=== PATIENT | male | born 1940 | race Caucasian/White ===

== ENCOUNTER → 2017-05-17 | Outpatient (CLI) | payer MEDICARE, OTHER ==
[~2017-05-17] MED LIST: ACET-1600 PO; ACET325T14 PO; ASPI-496 PO; ATOR10TA PO; BIOT5TAB PO; CALC625T68 PO; CITRACAL PO; DIAZ5TAB PO; GLUC-111 PO; NIAC100035 PO; OMEG1CAP24 PO; OMEP40CA6 PO; TRAM50TA2 PO; UBID50TA3 PO
[2017-05-17 15:31] LABS: BLOOD UREA NITROGEN 14 mg/dL (7-18)
== END | disposition home or self-care (01) ==
LOC: STAR 14:19
PROVIDERS: ATTEND Neurological Surgery
DX: Z01.818 Encounter for other preprocedural examination (principal); R94.31 Abnormal electrocardiogram [ECG] [EKG]; M48.06 Spinal stenosis, lumbar region; R79.1 Abnormal coagulation profile
CPT/HCPCS: 36415; 71020; 80048; 85025; 85610; 85730; 93005

== ENCOUNTER 2017-06-02 06:34 | Inpatient (IN) | payer MEDICARE, OTHER ==
[~2017-06-02] VITALS: Ht 180.3 cm; Wt 100.7 kg
[2017-06-02] MEDS ORDERED: BACITRACIN 50,000 UNIT ONE (07:00)
[2017-06-02] MEDS ORDERED: BUPIVACAINE/PF-EPI 0.5% 1:200K ONE (07:00)
[2017-06-02] MEDS ORDERED: LACTATED RINGERS 1,000 ML IV SCH (07:12)
[2017-06-02] MEDS ORDERED: LIDOCAINE 1%, 2ML SQ PRN (07:30)
[2017-06-02] MEDS ORDERED: REMIFENTANIL 2 MG ONE (07:38)
[2017-06-02] MEDS ORDERED: THROMBIN 20,000 UNIT VIAL TP ONE (07:49)
[2017-06-02] MEDS ORDERED: FENTANYL PF 250 MCG/5ML ONE (08:41)
[2017-06-02] MEDS ORDERED: ONDANSETRON 2MG/ML, 2ML ONE (09:49)
[2017-06-02] MEDS ORDERED: PROPOFOL 10 MG/ML, 50ML ONE (09:49)
[2017-06-02] MEDS ORDERED: SUCCINYLCHOLINE 20 MG/ML, 10ML ONE (09:49)
[2017-06-02] MEDS ORDERED: CEFAZOLIN 1,000 MG ONE (09:49)
[2017-06-02] MEDS ORDERED: PROPOFOL 10 MG/ML, 20ML ONE (09:49)
[2017-06-02] MEDS ORDERED: DEXAMETHASONE 4 MG/ML, 1ML ONE (09:49)
[2017-06-02] MEDS ORDERED: KETAMINE 10 MG/ML, 20ML ONE (09:49)
[2017-06-02] MEDS ORDERED: BUPIVACAINE/PF-EPI 0.5% 1:200K INFIL ONE (10:27)
[2017-06-02] MEDS ORDERED: ONDANSETRON 2MG/ML, 2ML IVPush PRN (10:30)
[2017-06-02] MEDS ORDERED: hydrALAzine 20 MG/ML, 1ML IV PRN (10:30)
[2017-06-02] MEDS ORDERED: HYDROcodone/APAP 7.5-325MG/15ML UDC PO PRN (10:30)
[2017-06-02] MEDS ORDERED: EPHEDRINE 50 MG/ML, 1ML IVPush PRN (10:30)
[2017-06-02] MEDS ORDERED: LABETALOL 5MG/ML, 20ML IV PRN (10:30)
[2017-06-02] MEDS ORDERED: OXYcodone 5 MG/5 ML ORAL.SOL UDC PO PRN (10:30)
[2017-06-02] MEDS ORDERED: PROMETHAZINE 25 MG/ML, 1ML IV PRN (10:30)
[2017-06-02] MEDS ORDERED: ACETAMINOPHEN 325 MG TABLET PO PRN ×2 (10:30→14:00)
[2017-06-02] MEDS ORDERED: HYDROmorphone 1 MG/ML, 1ML ONE (12:16)
[2017-06-02] MEDS ORDERED: FENTANYL PF 100 MCG/2ML ONE (12:16)
[2017-06-02] MEDS ORDERED: ACETAMINOPHEN 650 MG/20.3 ML UDC ONE (12:16)
[2017-06-02] MEDS ORDERED: OXYcodone 5 MG/5 ML ORAL.SOL UDC ONE (12:16)
[2017-06-02] MEDS: HYDROmorphone 1 MG/ML, 1ML IV PRN ×2 (12:21→12:26)
[2017-06-02] MEDS: FENTANYL PF 100 MCG/2ML IV PRN ×2 (12:31→12:38)
[2017-06-02] MEDS ORDERED: MAGNESIUM HYDROXIDE 8%, 30ML UDC PO PRN (14:00)
[2017-06-02] MEDS ORDERED: morphine SULFATE 10 MG/ML, 1ML IV PRN (14:00)
[2017-06-02] MEDS ORDERED: HYDROcodone/APAP 5/325 TABLET PO PRN (14:00)
[2017-06-02] MEDS ORDERED: HYDROcodone/APAP 10/325 MG TABLET PO PRN (14:00)
[2017-06-02] MEDS ORDERED: PROMETHAZINE 25 MG/ML, 1ML IM PRN (14:00)
[2017-06-02] MEDS: NS + 20MEQ KCL 1,000 ML IV SCH (14:00)
[2017-06-02] MEDS ORDERED: DIPHENHYDRAMINE 50 MG/ML, 1ML IVPush PRN (14:00)
[2017-06-02] MEDS ORDERED: ONDANSETRON 2MG/ML, 2ML IV PRN (14:00)
[2017-06-02] MEDS ORDERED: ACETAMINOPHEN 650 MG SUPP PR PRN (14:00)
[2017-06-02] MEDS ORDERED: BISACODYL 10 MG SUPP PR PRN (14:00)
[2017-06-02] MEDS ORDERED: DIPHENHYDRAMINE 50 MG CAPSULE PO PRN (14:00)
[2017-06-02] MEDS ORDERED: DIPHENHYDRAMINE 50 MG/ML, 1ML IM PRN (14:00)
[2017-06-02] MEDS: TAMSULOSIN 0.4 MG CAP.ER.24H PO SCH (17:30)
[2017-06-02] MEDS: CEFAZOLIN PMX 2GM/50ML 50 ML IVPB SCH (18:13)
[2017-06-02] MEDS: OXYcodone/APAP 5/325MG TABLET PO PRN ×2 (18:19→22:33)
[2017-06-02 19:08] VITALS: BP 124/83
[2017-06-02] MEDS: ATORVASTATIN 10 MG TABLET PO SCH (20:49)
[2017-06-02] MEDS ORDERED: ZOLPIDEM 5MG TABLET PO PRN (21:00)
[2017-06-02] MEDS: CYCLOBENZAPRINE 10 MG TABLET PO PRN (22:33)
[2017-06-03 00:16] VITALS: BP 113/56
[2017-06-03] MEDS: CEFAZOLIN PMX 2GM/50ML 50 ML IVPB SCH ×2 (02:36→10:11)
[2017-06-03] MEDS: OXYcodone/APAP 5/325MG TABLET PO PRN ×5 (02:36→21:07)
[2017-06-03] MEDS: NS + 20MEQ KCL 1,000 ML IV SCH ×2 (02:36→14:06)
[2017-06-03 03:13] VITALS: BP 132/67
[2017-06-03] MEDS: OMEPRAZOLE 20 MG CAPSULE.DR PO SCH (06:43)
[2017-06-03] MEDS: CYCLOBENZAPRINE 10 MG TABLET PO PRN (06:43)
[2017-06-03 07:12] VITALS: BP 123/73
[2017-06-03] MEDS: SENNA/DOCUSATE TABLET PO SCH (08:42)
[2017-06-03] MEDS: TAMSULOSIN 0.4 MG CAP.ER.24H PO SCH (08:48)
[2017-06-03] MEDS ORDERED: SENNA/DOCUSATE TABLET PO SCH (09:00)
[2017-06-03] MEDS ORDERED: NIACIN 500 MG TABLET.ER PO SCH (09:00)
[2017-06-03 14:47] VITALS: BP 139/68
[2017-06-03 19:44] VITALS: BP 117/65
[2017-06-03] MEDS: NIACIN 500 MG TABLET.ER PO SCH (21:01)
[2017-06-03] MEDS: ATORVASTATIN 10 MG TABLET PO SCH (21:01)
[2017-06-04] MEDS: OXYcodone/APAP 5/325MG TABLET PO PRN ×6 (00:45→23:15)
[2017-06-04] MEDS: NS + 20MEQ KCL 1,000 ML IV SCH ×2 (02:09→11:21)
[2017-06-04 02:18] VITALS: BP 112/79
[2017-06-04 06:56] VITALS: BP 116/67
[2017-06-04] MEDS: TAMSULOSIN 0.4 MG CAP.ER.24H PO SCH (10:20)
[2017-06-04] MEDS: NIACIN 500 MG TABLET.ER PO SCH ×2 (10:20→20:34)
[2017-06-04] MEDS: SENNA/DOCUSATE TABLET PO SCH (10:21)
[2017-06-04] MEDS: OMEPRAZOLE 20 MG CAPSULE.DR PO SCH (10:21)
[2017-06-04 13:37] VITALS: BP 133/70
[2017-06-04 18:57] VITALS: BP 126/76
[2017-06-04 19:04] VITALS: BP 137/66
[2017-06-04] MEDS: ATORVASTATIN 10 MG TABLET PO SCH (20:34)
[2017-06-05 01:05] VITALS: BP 134/66
[2017-06-05] MEDS: NS + 20MEQ KCL 1,000 ML IV SCH (02:15)
[2017-06-05] MEDS: OXYcodone/APAP 5/325MG TABLET PO PRN ×2 (04:23→09:41)
[2017-06-05 06:53] VITALS: BP 128/73
[2017-06-05] MEDS: NIACIN 500 MG TABLET.ER PO SCH (09:39)
[2017-06-05] MEDS: OMEPRAZOLE 20 MG CAPSULE.DR PO SCH (09:39)
[2017-06-05] MEDS: TAMSULOSIN 0.4 MG CAP.ER.24H PO SCH (09:40)
[2017-06-05] MEDS: SENNA/DOCUSATE TABLET PO SCH (09:40)
[2017-06-05] MEDS ORDERED: OXYC-229 PO (12:28)
[2017-06-05] MEDS ORDERED: CYCL-259 PO (12:28)
[2017-06-05 12:44] VITALS: BP 161/90
[2017-06-05 13:19] VITALS: BP 142/81
== END 2017-06-05 13:25 | disposition home or self-care (01) | DRG 517 ==
LOC: OUT 06:34 → 4NOR 13:18 → OUT 16:14
PROVIDERS: ADMIT Neurological Surgery; ATTEND Neurological Surgery
PROC: 01NB0ZZ Release Lumbar Nerve, Open Approach (ICD-10-PCS; principal; 2017-06-02 09:00)
DX: M48.06 Spinal stenosis, lumbar region (principal); R33.8 Other retention of urine; E78.5 Hyperlipidemia, unspecified; K21.9 Gastro-esophageal reflux disease without esophagitis; I44.7 Left bundle-branch block, unspecified; M19.90 Unspecified osteoarthritis, unspecified site; F17.210 Nicotine dependence, cigarettes, uncomplicated; Z87.11 Personal history of peptic ulcer disease; M54.16 Radiculopathy, lumbar region
CPT/HCPCS: 72100; J0690; J1100; J1170; J2405; J2704; J3010; J3480; J0330

== ENCOUNTER → 2017-06-09 | Outpatient (CLI) | payer MEDICARE, OTHER ==
[~2017-06-09] MED LIST changes: +CYCL-259 PO; +OXYC-229 PO
[2017-06-09 10:19] LABS: BLOOD UREA NITROGEN 21 mg/dL (7-18)
[2017-06-09 10:23] LABS: IS PT STATUS REG ER OR PRE ER? NO
[2017-06-09 10:59] LABS: DIFF TOTAL CELLS COUNTED 100 CELL DIFF
[2017-06-09 11:02] LABS: VERIFY COUNTS? YES
== END | disposition home or self-care (01) ==
LOC: RAD 09:08
PROVIDERS: ATTEND Neurological Surgery
DX: R07.9 Chest pain, unspecified (principal); Z98.890 Other specified postprocedural states
CPT/HCPCS: 36415; 71020; 80048; 84484; 85025; 85379; 93005

== ENCOUNTER 2017-06-12 15:38 | Emergency (ER) | payer MEDICARE, OTHER ==
[~2017-06-12] VITALS: Ht 180.3 cm; Wt 89.2 kg
[2017-06-12] MEDS ORDERED: TIZA4CAP PO (16:20)
[2017-06-12] MEDS ORDERED: METHYLNALTREXONE 12 MG/0.6 ML SQ ONE (17:00)
[2017-06-12 19:01] VITALS: BP 137/69
== END 2017-06-12 19:04 | disposition home or self-care (01) ==
LOC: ED 18:09
DX: K64.4 Residual hemorrhoidal skin tags (principal); K59.00 Constipation, unspecified; Z88.8 Allergy status to other drugs, medicaments and biological substances
CPT/HCPCS: 74020; 96372